=== PATIENT | female | born 1985 | race Caucasian/White ===

== ENCOUNTER → 2025-04-23 09:21 | Outpatient (REF) | payer OTHER, SELFPAY | LOC: WDC 09:21 | PROVIDERS: ATTENDING PHYSICIAN Surgery; FAMILY PHYSICIAN Family Medicine | DX: N63.11 Unspecified lump in the right breast, upper outer quadrant (principal); N63.15 Unspecified lump in the right breast, overlapping quadrants | CPT/HCPCS: 76642; 77062; 77066 ==

== ENCOUNTER → 2025-07-30 19:12 | Outpatient (REF) | payer OTHER, SELFPAY | LOC: MRI 3T 19:12 | PROVIDERS: ATTENDING PHYSICIAN Nurse Practitioner Adult Health; FAMILY PHYSICIAN Family Medicine | DX: R92.8 Other abnormal and inconclusive findings on diagnostic imaging of breast (principal); N60.81 Other benign mammary dysplasias of right breast | CPT/HCPCS: 77049; A9585 ==